=== PATIENT | male | born 1975 | race Caucasian/White ===

== ENCOUNTER 2017-07-13 11:09 | Emergency (ER) | payer BC ==
--- NOTE | 2017-07-13 11:35 | Emergency Department Record ---
History of Present Illness - General Chief Complaint: Laceration(s) Stated Complaint: CUT FINGERTWO DAYS AGO Time Seen by Provider: 07/13/17 11:19 Source: Patient Mode of Arrival: Ambulatory Limitations: No limitations - History of Present Illness Initial Commments: The patient cut the tip of the R 2nd finger off 2 days ago. 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 He denies any pain or discomfort and his Td is UTD. Onset/Timin -: Days(s) Place: Home Context: Accidental Associated Symptoms: None Treatments Prior to Arrival: Bandage - Related Data Hx Tetanus Toxoid Vaccination: Yes Patient Tetanus UTD (within 5 yrs): Yes Home Medications Medication Instructions Recorded Confirmed Last Taken Amiodarone HCl [Pacerone] 200 mg PO DAILY 07/13/17 07/13/17 Unknown Amlodipine Besylate [Norvasc] 10 mg PO DAILY 07/13/17 07/13/17 Unknown Apixaban [Eliquis] 2.5 mg PO BID 07/13/17 07/13/17 Unknown Labetalol HCl [Labetalol HCl] 100 mg PO BID 07/13/17 07/13/17 Unknown Pantoprazole Sodium [Protonix] 40 mg PO DAILY 07/13/17 07/13/17 Unknown Spironolactone [Spironolactone] 50 mg PO DAILY 07/13/17 07/13/17 Unknown Torsemide [Demadex] 20 mg PO BID 07/13/17 07/13/17 Unknown Previous Rx's Medication Instructions Recorded Cephalexin [Keflex] 500 mg PO TID #15 cap 07/13/17 Allergies Allergy/AdvReac Type Severity Reaction Status Date / Time No Known Drug Allergies Allergy Verified 12/09/15 14:49 Travel Screening - Travel/Exposure Within Last 30 Days Have you traveled within the last 30 days?: No Review of Systems Constitutional: Denies: Chills, Fever Past Medical History - SOCIAL HISTORY Smoking Status: Never smoker Alcohol Use: None Drug Use: None - RESPIRATORY Hx Respiratory Disorders: No Comment:: low lung capacity - CARDIOVASCULAR Hx Cardio Disorders: Yes Hx Abnormal EKG: Yes Hx Cardiac Cath: Yes Hx Irregular Heartbeat: Yes (afib) Hx Palpitations: Yes - NEURO Hx Neuro Disorders: No - GI Hx GI Disorders: No - Hx Genitourinary Disorders: No - ENDOCRINE Hx Endocrine Disorders: No - MUSCULOSKELETAL Hx Musculoskeletal Disorders: No - PSYCH Hx Psych Problems: Yes Hx Anxiety: Yes Hx Depression: Yes - HEMATOLOGY/ONCOLOGY Hx Hematology/Oncology Disorders: No Family Medical History Any Significant Family History?: No Physical Exam - General General Appearance: Alert, Cooperative, No acute distress - Head Head exam: Atraumatic, Normocephalic - Eye Eye exam: Normal appearance, PERRL - Extremities Extremities exam: Full ROM. negative: Normal inspection (There is a 2x6 mm wound to the tip of the R 2nd finger. The wound appears very clean and is only oozing at this time. There are no signs of infection.), Tenderness Course Vital Signs 07/13/17 11:12 Temperature 98.1 F Pulse Rate 78 Respiratory 18 Rate Blood Pressure 132/75 Pulse Ox 92 L - Reevaluation(s) Reevaluation #1: We did gently clean the wound with sterile water and dress with Abx ointment, adaptic and a tube gauze dressing. 07/13/17 11:33 Disposition Disposition: Discharge Clinical Impression: Finger injury Qualifiers: Encounter type: initial encounter Laterality: right Qualified Code(s): S69.91XA - Unspecified injury of right wrist, hand and finger(s), initial encounter Disposition: Home, Self-Care Condition: (1) Good Instructions: Laceration (ED) Additional Instructions: Please keep the dressing clean and dry and remove the dressing in 48 hours. Take the Keflex as directed. Return to the ER for any further problems or bleeding issues. Prescriptions: Cephalexin [Keflex] 500 mg PO TID #15 cap Forms: Patient Portal Access Time of Disposition: 11:35 Quality - Quality Measures Quality Measures: N/A - Blood Pressure Screening View Details: Yes Does Patient Have Any of the Following: No Blood Pressure Classification: Pre-Hypertensive BP Reading Systolic Measurement: 132 Diastolic Measurement: 75 Screening for High Blood Pressure: < Pre-Hypertensive BP, F/U Documented > [ [id number]] Pre-Hypertensive Follow-up Interventions: Referral to alternative/primary care provider.
== END 2017-07-13 11:39 | disposition home or self-care (01) ==
LOC: ER 11:09
DX: S69.81XA Other specified injuries of right wrist, hand and finger(s), initial encounter (principal); W27.4XXA Contact with kitchen utensil, initial encounter; I48.91 Unspecified atrial fibrillation; Z79.01 Long term (current) use of anticoagulants; Y92.009 Unspecified place in unspecified non-institutional (private) residence as the place of occurrence of the external cause
CPT/HCPCS: 99283